=== PATIENT | female | born 1955 | race Caucasian/White ===

== ENCOUNTER 2020-08-25 11:53 | Outpatient (REF) | payer OTHER, MEDICARE, SELFPAY ==
--- NOTE | 2020-08-25 | MM_ITS ---
EXAMINATION: MM SCREENING DIGITAL BREAST TOMOSYNTHESIS, BILATERAL CLINICAL INFORMATION: Screening. Asymptomatic. Family history (mother, age 69). The lifetime risk of breast cancer based on the Tyrer-Cuzick Model is 6%. COMPARISON: Mammography: 04/25/2019, 10/17/2017 TECHNIQUE: Digital breast tomosynthesis is performed in both the craniocaudal and mediolateral oblique views along with computer-aided detection (CAD). Synthesized 2D images are generated from the tomosynthesis. FINDINGS: There are scattered areas of fibroglandular density (ACR BI-RADS breast composition Category b). There are no significant masses, abnormal calcifications, or other abnormalities. There is a dermal lesion overlying the inferior medial right breast, also marked with dermal marker on the MLO view. IMPRESSION: No mammographic evidence of malignancy. ASSESSMENT: BI-RADS 2: Benign RECOMMENDATION: Routine annual mammography screening. This patient's information was entered into a reminder system with a target due date for their next mammogram.
== END 2020-08-25 11:54 | disposition home or self-care (01) ==
LOC: HO.MAMMO 11:53
PROVIDERS: PCP Family Medicine; Visit Provider Family Medicine
DX: Z12.31 Encounter for screening mammogram for malignant neoplasm of breast (principal)
CPT/HCPCS: 77063; 77067

== ENCOUNTER 2021-06-24 08:16 | Outpatient (REF) | payer OTHER, MEDICARE, MEDICAID, SELFPAY ==
[2021-06-24 09:26] LABS: Alanine Aminotransferase 11 U/L (0-31); Anion Gap 14 (12-20); Blood Urea Nitrogen 15 mg/dL (9-16); Carbon Dioxide 20 mmol/L (22-29); Chloride 106 mmol/L (96-108); Cholesterol 176 mg/dL; Estimated Average Glucose 137 mg/dL; Estimated Glomerular Filt Rate 51; Glucose Fasting 124 mg/dL (60-99); HDL Cholesterol 57 mg/dL; Hemoglobin A1c % 6.4 %; LDL Cholesterol Calculated 99 mg/dl; Potassium 4.6 mmol/L (3.3-5.1); Sodium 135 mmol/L (135-145); Triglycerides 100 mg/dL
[2021-06-24 09:49] LABS: Free T4 (Free Thyroxine) 1.01 ng/dL (0.71-1.85); Thyroid Stimulating Hormone 1.09 uIU/mL (0.32-4.0)
== END 2021-06-24 08:17 | disposition home or self-care (01) ==
LOC: HO.LAB 08:16
PROVIDERS: PCP Family Medicine; Referring Provider Psychiatry & Neurology Psychiatry; Visit Provider Family Medicine
DX: E11.9 Type 2 diabetes mellitus without complications (principal); E78.00 Pure hypercholesterolemia, unspecified; E03.9 Hypothyroidism, unspecified; I10 Essential (primary) hypertension
CPT/HCPCS: 36415; 80051; 80061; 82565; 82947; 83036; 84439; 84443; 84460; 84520

== ENCOUNTER 2022-03-05 08:45 | Outpatient (REF) | payer OTHER, MEDICAID, SELFPAY ==
--- NOTE | ~2022-03-05 | MM_ITS ---
EXAMINATION: MM SCREENING DIGITAL BREAST TOMOSYNTHESIS, BILATERAL CLINICAL INFORMATION: Screening. Asymptomatic. The lifetime risk of breast cancer based on the Tyrer-Cuzick Model is 8%. COMPARISON: Mammography: 08/25/2020, 01/09/2019, 10/17/2017, 07/13/2016 TECHNIQUE: Digital breast tomosynthesis is performed in both the craniocaudal and mediolateral oblique views along with computer-aided detection (CAD). Synthesized 2D images are generated from the tomosynthesis. FINDINGS: There are scattered areas of fibroglandular density (ACR BI-RADS breast composition Category b). There are no significant masses, abnormal calcifications, or other abnormalities. There is a dermal lesion overlying the inferior right breast on MLO view similar to prior exams 2016 and 2015. The axilla are unremarkable. No significant changes. MM/MM tomosynthesis screening BI IMPRESSION: No mammographic evidence of malignancy. ASSESSMENT: BI-RADS 2: Benign RECOMMENDATION: Routine annual mammography screening. This patient's information was entered into a reminder system with a target due date for their next mammogram.
[2022-03-05 10:15] LABS: Estimated Average Glucose 140 mg/dL; Hemoglobin A1C 172.3383 umol/L; Hemoglobin A1c % 6.5 %
[2022-03-05 10:21] LABS: Glucose Fasting 126 mg/dL (60-99)
[2022-03-05 10:49] LABS: Free T4 (Free Thyroxine) 1.16 ng/dL (0.71-1.85)
== END 2022-03-05 08:46 | disposition home or self-care (01) ==
LOC: HO.MAMMO 08:45
PROVIDERS: PCP Family Medicine; Visit Provider Family Medicine
DX: Z12.31 Encounter for screening mammogram for malignant neoplasm of breast (principal); E03.9 Hypothyroidism, unspecified; E11.9 Type 2 diabetes mellitus without complications
CPT/HCPCS: 36415; 77063; 77067; 82947; 83036; 84439

== ENCOUNTER → 2022-08-30 16:35 | Outpatient (BNVA) | payer OTHER, MEDICARE, MEDICAID, SELFPAY | PROVIDERS: PCP Family Medicine; Visit Provider Psychiatry & Neurology Psychiatry | DX: F31.81 Bipolar II disorder (principal); F43.10 Post-traumatic stress disorder, unspecified | CPT/HCPCS: 90833 ==

== ENCOUNTER 2022-09-27 16:17 | Outpatient (REF) | payer OTHER, SELFPAY ==
[2022-09-27 18:18] LABS: Alanine Aminotransferase 10 U/L (0-31); Anion Gap 15 (12-20); Aspartate Amino Transferase 9 U/L (5-31); Blood Urea Nitrogen 17 mg/dL (9-16); Carbon Dioxide 20 mmol/L (22-29); Chloride 111 mmol/L (96-108); Cholesterol 192 mg/dL; Estimated Glomerular Filt Rate 56; Free T4 (Free Thyroxine) 1.04 ng/dL (0.71-1.85); Glucose Fasting 107 mg/dL (60-99); HDL Cholesterol 58 mg/dL; LDL Cholesterol Calculated 114 mg/dl; Potassium 4.6 mmol/L (3.3-5.1); Sodium 141 mmol/L (135-145); Triglycerides 104 mg/dL
[2022-09-28 05:13] LABS: Estimated Average Glucose 134 mg/dL; Hemoglobin A1c % 6.3 %
== END 2022-09-27 16:18 | disposition home or self-care (01) ==
LOC: HO.LAB 16:17
PROVIDERS: PCP Family Medicine; Visit Provider Family Medicine
DX: E11.9 Type 2 diabetes mellitus without complications (principal); I10 Essential (primary) hypertension; E78.00 Pure hypercholesterolemia, unspecified; Z79.899 Other long term (current) drug therapy; E03.9 Hypothyroidism, unspecified
CPT/HCPCS: 36415; 80051; 80061; 82550; 82565; 82947; 83036; 84439; 84443; 84450; 84460; 84520

== ENCOUNTER → 2022-12-15 16:33 | Outpatient (BNVA) | payer OTHER, SELFPAY | PROVIDERS: PCP Family Medicine; Visit Provider Psychiatry & Neurology Psychiatry | DX: F31.81 Bipolar II disorder (principal); F43.10 Post-traumatic stress disorder, unspecified ==

== ENCOUNTER → 2023-02-09 12:39 | Outpatient (BNVA) | payer OTHER, SELFPAY | PROVIDERS: PCP Family Medicine; Visit Provider Psychiatry & Neurology Psychiatry | DX: Z13.89 Encounter for screening for other disorder (principal) ==

== ENCOUNTER → 2023-03-16 13:20 | Outpatient (BNVA) | payer OTHER, MEDICARE, SELFPAY | PROVIDERS: PCP Family Medicine; Visit Provider Psychiatry & Neurology Psychiatry ==

== ENCOUNTER 2023-08-09 14:20 | Outpatient (AMB) | payer OTHER, MEDICARE, MEDICAID, SELFPAY ==
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
== END 2023-08-09 14:21 | disposition home or self-care (01) ==
LOC: HO.HOP 14:20
PROVIDERS: PCP Family Medicine; Visit Provider Psychiatry & Neurology Psychiatry
DX: F43.10 Post-traumatic stress disorder, unspecified (principal); F31.81 Bipolar II disorder; E03.9 Hypothyroidism, unspecified; M51.9 Unspecified thoracic, thoracolumbar and lumbosacral intervertebral disc disorder
CPT/HCPCS: 90833; 99213

== ENCOUNTER → 2023-08-09 14:20 | Outpatient (BNVA) | payer OTHER, MEDICARE, MEDICAID, SELFPAY | PROVIDERS: PCP Family Medicine; Visit Provider Psychiatry & Neurology Psychiatry ==

== ENCOUNTER 2023-10-10 16:03 | Outpatient (AMB) | payer OTHER, MEDICARE, MEDICAID, SELFPAY ==
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
== END 2023-10-10 17:14 | disposition home or self-care (01) ==
LOC: HO.HOP 16:04
PROVIDERS: PCP Family Medicine; Visit Provider Psychiatry & Neurology Psychiatry
DX: F43.10 Post-traumatic stress disorder, unspecified (principal); F31.81 Bipolar II disorder
CPT/HCPCS: 99214

== ENCOUNTER → 2023-10-10 16:03 | Outpatient (BNVA) | payer OTHER, MEDICARE, MEDICAID, SELFPAY | PROVIDERS: PCP Family Medicine; Visit Provider Psychiatry & Neurology Psychiatry ==

== ENCOUNTER 2023-10-20 10:19 | Outpatient (REF) | payer OTHER, MEDICARE, SELFPAY ==
[2023-10-20 10:53] LABS: Estimated Average Glucose 131 mg/dL; Hemoglobin A1c % 6.2 % (<6.0)
[2023-10-20 11:32] LABS: Alanine Aminotransferase 8 U/L (0-31); Aspartate Amino Transferase 10 U/L (5-31); Blood Urea Nitrogen 17 mg/dL (9-16); Cholesterol 155 mg/dL (<200); Estimated Glomerular Filt Rate 56; Glucose Fasting 129 mg/dL (60-99); HDL Cholesterol 57 mg/dL (>40); LDL Cholesterol Calculated 79 mg/dL (<100); Triglycerides 99 mg/dL (<150)
[2023-10-20 11:35] LABS: Free T4 (Free Thyroxine) 0.92 ng/dL (0.71-1.85); Thyroid Stimulating Hormone 1.71 uIU/mL (0.32-4.0)
[2023-10-20 12:05] LABS: Microalbum/Creatinine Ratio Ur 28.9 ug/mg cr (<30)
== END 2023-10-20 10:20 | disposition home or self-care (01) ==
LOC: HO.MAMMO 10:19
PROVIDERS: PCP Family Medicine; Visit Provider Family Medicine
DX: Z12.31 Encounter for screening mammogram for malignant neoplasm of breast (principal); E11.9 Type 2 diabetes mellitus without complications; E03.9 Hypothyroidism, unspecified; E78.00 Pure hypercholesterolemia, unspecified; Z79.899 Other long term (current) drug therapy
CPT/HCPCS: 36415; 77063; 77067; 80061; 82043; 82550; 82565; 82570; 82947; 83036; 84439; 84443; 84450; 84460; 84520

== ENCOUNTER → 2023-10-20 13:00 | Outpatient (BNV) | payer OTHER, MEDICARE, SELFPAY | PROVIDERS: PCP Family Medicine; Visit Provider Radiology Diagnostic Radiology | DX: Z12.31 Encounter for screening mammogram for malignant neoplasm of breast (principal) | CPT/HCPCS: 77063; 77067 ==

== ENCOUNTER 2024-02-05 18:15 | Outpatient (AMB) | payer OTHER, MEDICARE, SELFPAY ==
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
== END 2024-02-05 18:36 | disposition home or self-care (01) ==
LOC: HO.HOP 18:15
PROVIDERS: PCP Family Medicine; Visit Provider Psychiatry & Neurology Psychiatry
DX: F43.10 Post-traumatic stress disorder, unspecified (principal); F31.81 Bipolar II disorder
CPT/HCPCS: 99214

== ENCOUNTER → 2024-02-05 18:15 | Outpatient (BNVA) | payer OTHER, MEDICARE, SELFPAY | PROVIDERS: PCP Family Medicine; Visit Provider Psychiatry & Neurology Psychiatry ==

== ENCOUNTER 2024-05-30 13:21 | Outpatient (AMB) | payer OTHER, MEDICARE, SELFPAY ==
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
== END 2024-05-30 13:21 | disposition home or self-care (01) ==
LOC: HO.HOP 13:21
PROVIDERS: PCP Family Medicine; Visit Provider Psychiatry & Neurology Psychiatry
DX: F43.10 Post-traumatic stress disorder, unspecified (principal); F31.81 Bipolar II disorder
CPT/HCPCS: 99213

== ENCOUNTER → 2024-05-30 13:21 | Outpatient (BNVA) | payer OTHER, MEDICARE, SELFPAY | PROVIDERS: PCP Family Medicine; Visit Provider Psychiatry & Neurology Psychiatry ==

== ENCOUNTER 2024-07-22 13:14 | Outpatient (REF) | payer OTHER, MEDICARE, SELFPAY ==
[2024-07-22 14:41] LABS: Estimated Average Glucose 146 mg/dL; Hemoglobin A1c % 6.7 % (<6.0)
[2024-07-22 14:46] LABS: Alanine Aminotransferase 6 U/L (0-31); Anion Gap 15 (12-20); Aspartate Amino Transferase 8 U/L (5-31); Blood Urea Nitrogen 15 mg/dL (9-16); Carbon Dioxide 22 mmol/L (22-29); Chloride 107 mmol/L (96-108); Estimated Glomerular Filt Rate 49; Glucose Fasting 126 mg/dL (60-99); Potassium 4.2 mmol/L (3.3-5.1); Sodium 140 mmol/L (135-145)
[2024-07-22 14:51] LABS: Thyroid Stimulating Hormone 1.65 uIU/mL (0.32-4.0)
[2024-07-22 14:55] LABS: Creatinine Urine 260.27 mg/dL; Microalbum/Creatinine Ratio Ur 33.8 ug/mg cr (<30)
[2024-07-22 15:28] LABS: T4 Thyroxine 7.1 ug/dL (4.5-12.0)
== END 2024-07-22 13:15 | disposition home or self-care (01) ==
LOC: HO.LAB 13:14
PROVIDERS: PCP Family Medicine; Visit Provider Family Medicine
DX: I10 Essential (primary) hypertension (principal); E03.9 Hypothyroidism, unspecified; E11.9 Type 2 diabetes mellitus without complications; E78.00 Pure hypercholesterolemia, unspecified; Z79.02 Long term (current) use of antithrombotics/antiplatelets
CPT/HCPCS: 36415; 80051; 82043; 82550; 82565; 82570; 82947; 83036; 84436; 84443; 84450; 84460; 84520

== ENCOUNTER 2024-08-12 11:30 | Outpatient (AMB) | payer OTHER, MEDICARE, SELFPAY ==
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
== END 2024-08-12 12:00 | disposition home or self-care (01) ==
PROVIDERS: PCP Family Medicine; Visit Provider Psychiatry & Neurology Psychiatry
DX: F31.81 Bipolar II disorder (principal); F43.10 Post-traumatic stress disorder, unspecified
CPT/HCPCS: 90833; 99213

== ENCOUNTER → 2024-08-12 11:30 | Outpatient (BNVA) | payer OTHER, MEDICARE, SELFPAY | PROVIDERS: PCP Family Medicine; Visit Provider Psychiatry & Neurology Psychiatry ==

== ENCOUNTER 2025-04-01 17:06 | Outpatient (AMB) | payer OTHER, MEDICARE, SELFPAY ==
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
== END 2025-04-01 17:07 | disposition home or self-care (01) ==
LOC: HO.HOP 17:06
PROVIDERS: PCP Family Medicine; Visit Provider Psychiatry & Neurology Psychiatry
DX: F31.81 Bipolar II disorder (principal); F43.10 Post-traumatic stress disorder, unspecified
CPT/HCPCS: 99213

== ENCOUNTER 2025-10-20 12:36 | Outpatient (AMB) | payer OTHER, MEDICARE, SELFPAY ==
--- OUTSIDE RECORDS SUMMARY | 2025-05-29 08:35 | XMS_ITS ---
Author Organization [facility] Address [address] [facility] [address] [place] [address] Care Team Providers Care Grain Receiver Name Role Phone JOSHUA OSBORNE Primary Care Provider Angel karey Brantley, Pedro Unavailable [phone] Mickey Patel, Zeferino Unavailable REASON FOR VISIT Patient presents today for a SCREENING COLON Encounters Encounter Location Date Provider Diagnosis [facility] [address] [facility] [address] [place] [phone] 05/29/2025 Zeferino Arevalo Jr Plan Of Treatment Next Appt Details Provider Name:Pedro Brantley , 01/28/2026 02:20:00 PM, [address] [facility], [address], [place], [address], Progress Notes * SARA ACEVESDOB:[birth year] (70 yo F)Acc No.[id number]:05/29/2025 Progress Notes Patient: SARA GARVEY Provider: Ara Arevalo MD :1955 A ge:69 Y S ex:Female Date:05/29/2025 Address:[address] [place] [address] [address] [id number] Pcp:JOSHUA OSBORNE Subjective: * Chief Complaints: * P atient presents today for a SCREENING COLON * The named appointment provid er may or may not be the originator of this progress note, and it is not deemed complete until electronically signed by the appointment provider. Sign off status: Pending * Provider: Ara Arevalo MD Date: 05/29/2025 Generated for Nader de los santos/Sidney/eTransmitting on: 1 12/21/2024 06:10 PM EST
--- OUTSIDE RECORDS SUMMARY | 2025-10-16 10:35 | XMS_ITS ---
Author Organization [facility] Address [address] [facility] [address] [place] [address] Care Team Providers Care Cremator Name Role Phone JOSHUA OSBORNE Primary Care Provider Angel karey Brantley, Pedro Unavailable [phone] Mickey Patel, Zeferino Unavailable REASON FOR VISIT Patient presents today for SCREENING COLON Encounters Encounter Location Date Provider Diagnosis [facility] [address] [facility] [address] [place] [phone] 10/16/2025 Zeferino Arevalo Jr Plan Of Treatment Next Appt Details Provider Name:Pedro Brantley , 01/28/2026 02:20:00 PM, [address] [facility], [address], [place], [address], Progress Notes * SARA ACEVESDOB:[birth year] (70 yo F)Acc No.[id number]:10/16/2025 Progress Notes Patient: SARA GARVEY Provider: Ara Arevalo MD :1955 A ge:70 Y S ex:Female Date:10/16/2025 Address:[address] [place] [address] [address] [id number] Pcp:JOSHUA OSBORNE Subjective: * Chief Complaints: * P atient presents today for SCREENING COLON * The named appointment provid er may or may not be the originator of this progress note, and it is not deemed complete until electronically signed by the appointment provider. Sign off status: Pending * Provider: Ara Arevalo MD Date: 12/17/2024 Generated for Nader de los santos/Sidney/eTransmitting on: 12/21/2024 06:10 PM EST
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
--- OUTSIDE RECORDS SUMMARY | 2025-10-20 18:10 | XMS_ITS | Patient Health Record ---
Author Organization [facility] Address [address] [facility] [address] [place] [address] Care Team Providers Care Intelligence Analyst Name Role Phone JOSHUA OSBORNE Primary Care Provider Pedro Ma Unavailable [phone] Zeferino Arevalo Jr Unavailable Reason For Referral No Information Plan Of Treatment Next Appt Details Provider Name:Pedro Brantley , 01/28/2026 02:20:00 PM, [address] [facility], [address], [place], [address], Insurance Providers Payer Name Payer Address Payer Phone Subscriber Number Group Number Insured Name Patient Relationship to Insured Coverage Start Date Coverage End Date [facility] [address] [facility] [place] [phone] [id number] SARA ACEVES Self - patient is the insured
== END 2025-10-20 13:12 | disposition home or self-care (01) ==
LOC: HO.HOP 12:36
PROVIDERS: PCP Physician Assistant; Visit Provider Psychiatry & Neurology Psychiatry
DX: F31.81 Bipolar II disorder (principal); F43.10 Post-traumatic stress disorder, unspecified
CPT/HCPCS: 90833; 99213